=== PATIENT | female | born 1990 ===

== ENCOUNTER → 2024-09-21 | Outpatient (REF) | LOC: M EMP 11:24 | PROVIDERS: ATTEND Family Medicine | DX: Z11.52 Encounter for screening for COVID-19 (principal) ==

== ENCOUNTER → 2025-09-19 | Outpatient (REF) | payer OTHER ==
[2025-09-19 18:39] LABS: ALT/SGPT 19.0 U/L (7.0-40); AST/SGOT 18.0 U/L (<34); CALCIUM LEVEL 10.0 MG/DL (8.5-10.1); CARBON DIOXIDE LEVEL 26.0 MMOL/L (20-31); CHLORIDE LEVEL 105.0 MMOL/L (98-107); CREATININE FOR GFR 0.98 MG/DL (0.55-1.30); GLOMERULAR FILTRATION RATE 76.2 (>60); POTASSIUM SERUM 4.3 MMOL/L (3.5-5.1); SODIUM LEVEL 142.0 MMOL/L (136-145)
== END ==
LOC: M SFHCWAGY 17:55
PROVIDERS: ATTEND Student in an Organized Health Care Education/Training Program
DX: E28.8 Other ovarian dysfunction (principal)